=== PATIENT | female | born 1975 | race Caucasian/White ===

== ENCOUNTER → 2020-10-04 15:16 | Outpatient (BNVA) | payer MEDICARE, MEDICAID, SELFPAY | PROVIDERS: PCP Internal Medicine; Visit Provider Urology | CPT/HCPCS: Q3014 ==

== ENCOUNTER → 2020-11-10 09:58 | Outpatient (BNVA) | payer MEDICARE, MEDICAID, SELFPAY | PROVIDERS: Visit Provider Urology | DX: Z13.89 Encounter for screening for other disorder (principal) | CPT/HCPCS: Q3014 ==

== ENCOUNTER → 2021-07-07 15:19 | Outpatient (BNVA) | payer MEDICARE, MEDICAID, SELFPAY | PROVIDERS: PCP Internal Medicine; Visit Provider Urology | DX: Z13.89 Encounter for screening for other disorder (principal) | CPT/HCPCS: Q3014 ==

== ENCOUNTER → 2022-01-02 13:14 | Outpatient (BNVA) | payer MEDICARE, MEDICAID, SELFPAY | PROVIDERS: PCP Internal Medicine; Visit Provider Urology | DX: N20.0 Calculus of kidney (principal); R39.15 Urgency of urination; R35.1 Nocturia | CPT/HCPCS: Q3014 ==

== ENCOUNTER → 2023-02-25 13:27 | Outpatient (BNVA) | payer MEDICARE, MEDICAID, SELFPAY | PROVIDERS: PCP Internal Medicine; Visit Provider Nurse Practitioner Family | DX: R39.15 Urgency of urination (principal); R35.1 Nocturia; N39.3 Stress incontinence (female) (male); N20.0 Calculus of kidney | CPT/HCPCS: Q3014 ==

== ENCOUNTER 2024-06-15 11:19 | Outpatient (AMB) | payer MEDICARE, MEDICAID, SELFPAY ==
--- NOTE | 2024-06-15 11:14 | A.OFFVIS_ITS ---
Intake Visit Reasons: follow-up/U/S(set) Allergies morphine Adverse Reaction (Uncoded 06/15/24 18:57) Itching Medication List - Last Reconciled 06/15/24 by MINI Felix allopurinol 100 mg PO DAILY 90 days B-complex with vitamin C (Super B/C capsule) 1 cap PO DAILY cholecalciferol (vitamin D3) (Vitamin D3) 10 mcg PO DAILY clonidine HCl 0.2 mg PO BID dulaglutide (Trulicity) 3 mg subcut QWEEK duloxetine (Cymbalta) PO xrakkgimag-fvopleub-jvalwb ala 200-25-25 mg (Odefsey) 1 tab PO DAILY erenumab-aooe (Aimovig Autoinjector) mg subcut Q4W insulin lispro (Humalog KwikPen U-200 Insulin) units subcut lamotrigine 50 mg PO DAILY lamotrigine 200 mg PO DAILY lisinopril 5 mg PO DAILY mirabegron ER (Myrbetriq) 25 mg PO DAILY 90 days multivitamin with folic acid 400 mcg (Daily-Mathew (with folic acid)) 1 tab PO DAILY nystatin appl topical potassium citrate ER 20 mEq (2 x 10 mEq (1,080 mg)) PO BID 90 days pravastatin 20 mg PO DAILY prednisone 20 mg PO DAILY 5 days pregabalin 150 mg PO BID pyridoxine (vitamin B6) 100 mg PO DAILY 90 days terazosin 1 mg PO BEDTIME 90 days valacyclovir 1,000 mg PO DAILY HPI Comments Details: Deena is a very pleasant 49 year old female patient of Dr. Santiago. She is being followed up on today via video telehealth for her longstanding history of nephrolithiasis and mixed urinary incontinence. In discussion with the patient today she reports recently being discharged from [facility] for ongoing wound to her foot that she has been experiencing. She reports compliance with terazosin, Myrbetriq, vitamin B6, and potassium citrate as prescribed however is requesting a refill. Recent renal imaging results reviewed with the patient today. Kidneys are within normal limits for size. No hydronephrosis noted bilaterally. Stable 0.5 cm echogenic structure in the right kidney likely a stone. Stable 0.4 cm echogenic structure in the left upper pole kidney also likely a stone. No focal lesions bilaterally. It appears imaging remains stable when compared to previous imaging of February 2023. She continues to discussed utilizing 2-3 Lyly pads per day for mixed urinary incontinence. She does feel Myrbetriq has been helpful in lessening pads however continues to experience significant amount of stress incontinence. She otherwise denies hematuria, dysuria, foul smelling urine, changes to urinary stream, flank pain, fever, and or chills. Discussed at length importance of managing diabetes for improvement in urinary symptoms as well as overall health and well-being. She otherwise denies any issues or concerns at this time. Nephrolithiasis/Urolithiasis: She is seen for further evaluation of nephrolithiasis Associated symptoms include Fever No Nausea No Chills No Hematuria No Urolithiasis was diagnosed Had prior stone. Pain on left side with pyelonephritis In August had presented to PCP with flank discomfort. Suspect stone recurrence.. The patient previously had kidney stones whose composition w 10/29 , calci um oxalate - monohydrate with uric acid. Laboratory investigations include no recent labs. Prior treatment(s) include 10/29 left side USR laser. Prior imaging includes 11/24 , a CT (computed tomography) scan of the abdomen/pelvis (stone protocol) L 6mm stone. 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 small stone 09/28 , a renal ultrasound 11mm right, 16mm left 12/27 , a CT (computed tomography) scan of the abdomen/pelvis (stone p rotocol) - multiple 2 mm stones bilaterally, imbedded - 10/30 CT scan punctate stones - 06/29 renal ultrasound 1 cm stone on right, 2 stones on left, 12/29 renal ultrasound 2x9 mm stones on right, 5mm stone on left -03/01 renal ultrasound; One 5mm right upper pole, One 5 mm left mid pole Current therapeutic plan will be to continue with imaging surveillance Review of Systems Const Reports as per HPI Eyes Reports no additional complaints ENT Reports no additional complaints Card Reports no additional complaints Resp Reports no additional complaints GI Reports no additional complaints Reports as per HPI Skin/Breast Reports as per HPI Neuro Reports no additional complaints Psych Reports no additional complaints Endo Reports as per HPI Physical Exam Const General: cooperative, healthy appearing, comfortable, no acute distress, well developed, alert and awake Resp Effort & Inspection: normal respiratory effort and able to speak in complete se ntences Psych Appearance: grossly normal Speech and movement: Clear speech present Attitude: cooperative Insight: Fair insight present (Psych) Judgement: Fair judgement present (Psych) Telehealth Telehealth Telehealth Platform: [facility] Location of provider rendering services: practice address Location of patient: address on file Patient Identification confirmed using: Name, : Yes Telehealth method: video Patient verbally consented to treatment: Yes Patient verbally consented to billing insurance company: Yes Patient informed of any privacy concerns related to visit: Yes Minutes spent on Phone/Video with Pt.: 15 Assessment & Plan Assessment & Plan (1) Urinary urgency: Code(s): R39.15 - Urgency of urination Category: Medical (2) Nocturia more than twice per night: Code(s): R35.1 - Nocturia Category: Medical (3) Stress incontinence: Code(s): N39.3 - Stress incontinence (female) (male) Category: Medical (4) Nephrolithiasis: Comment: Potassium monohydrate with uric acid Code(s): N20.0 - Calculus of kidney Category: Medical Plan Recent renal imaging results reviewed with the patient today; as noted above; stable; will continue with surveillance monitoring Discussed and stressed the importance of managing diabetes for improvement in urinary symptoms as well as overall health and well being. Continue urological medications as discussed and prescribed for treatment of nephrolithiasis, mixed urinary incontinence, and nocturia; refill provided. Discussed further treatment options of stress incontinence; will schedule for next available in office urodynamics for further assessment evaluation. Discussed the importance of drinking plenty of water daily. Continue adding 1 oz of lemon juice to water daily. Renal ultrasound in 6 months. Follow-up in 6 months with imaging to be completed prior; or sooner with any issues, concerns, or questions. Follow-up next available in office urodynamics for further assessment evaluation. Orders: Orders US renal BI 6 Months N20.0 - Calculus of kidney Medications: Refilled pyridoxine (vitamin B6) 100 mg PO DAILY 90 days 90 tabs 3RF N13.2 - Hydronephrosis with renal and ureteral calculous obstruction, N20.0 - Calculus of kidney mirabegron ER (Myrbetriq) 25 mg PO DAILY 90 days 90 tabs 3RF N32.81 - Over active bladder, R35.1 - Nocturia terazosin 1 mg PO BEDTIME 90 days 90 caps 1RF R39.12 - Poor urinary stream prednisone 20 mg PO DAILY 5 days 5 tabs 0RF N20.0 - Calculus of kidney potassium citrate ER 20 mEq (2 x 10 mEq (1,080 mg)) PO BID 90 days 360 tabs 1RF N20.0 - Calculus of kidney Patient Instructions: The patient had an opportunity to ask questions regarding the treatment plan. All questions were answered. Physical exam, labs, and imaging were discussed and reviewed in detail. As well as risks, benefits, and discussion of treatment choices. No major barriers to understanding were identified. The patient expressed understanding and agreement with the above treatment plan. The patient was made aware they should contact our office by phone for worsening of their current condition, the appearance of new symptoms, or with any questions or concerns. Compliance is encouraged with any medications and follow up testing that is ordered. It is a privilege to be allowed the opportunity to participate in? your urological care.? Again, if you have any questions or concerns If you have any questions or concerns please do not hesitate to contact me. The office is [phone]. This note is constructed using voice recognition software. While every effort has been made to ensure accuracy frame table operator helper errors may have been included. Yours sincerely, MINI Felix Coding Level of Care Code Tele Est Pt Level 3 (77869) Complex EM visit Add On G2211 Diagnoses Urinary urgency R39.15 Nocturia more than twice per night R35.1 Stress incontinence N39.3 Nephrolithiasis N20.0 Time Spent (min) 15
== END 2024-06-15 11:44 | disposition home or self-care (01) ==
LOC: HO.HUSH 11:19
PROVIDERS: PCP Internal Medicine; Visit Provider Nurse Practitioner Family
DX: R39.15 Urgency of urination (principal); R35.1 Nocturia; N39.3 Stress incontinence (female) (male); N20.0 Calculus of kidney
CPT/HCPCS: 99213; G2211

== ENCOUNTER → 2024-06-15 11:19 | Outpatient (BNVA) | payer MEDICARE, MEDICAID, SELFPAY | PROVIDERS: PCP Internal Medicine; Visit Provider Nurse Practitioner Family ==